=== PATIENT | male | born 1975 | race Hispanic/Latino ===

== ENCOUNTER 2021-11-14 18:08 | Emergency (ER) | payer OTHER ==
[2021-11-14] MEDS ORDERED: TETANUS & DIPHTHERIA TOX,ADULT 0.5 ML VIAL ONE (19:34)
--- NOTE | 2021-11-14 20:02 | RAD REPORT ---
EXAM DESCRIPTION: RAD - Finger-Thumb Right - 11/14/2021 7:56 pm CLINICAL HISTORY: laceration COMPARISON: No comparisons FINDINGS: No acute fracture. No malalignment. No significant focal degenerative changes. Laceration to the tip of the second finger. No radiopaque foreign body. IMPRESSION: No acute osseous abnormality involving the second finger.
[2021-11-14] MEDS ORDERED: BUPIVACAINE 0.5% PF 10 ML VIAL ONE (20:10)
[2021-11-14] MEDS ORDERED: LIDOCAINE 1% MPF 5 ML VIAL ONE (20:10)
[2021-11-14] MEDS ORDERED: LIDOCAINE 1% 20 ML MDV ONE (20:11)
--- NOTE | 2021-11-14 21:17 | EDPHYS ---
Physician Documentation [facility] Name: Nick Allen Age: 46 yrs Sex: Male : 1975 Arrival Date: 11/14/2021 Time: 18:11 Bed 8 Private MD: ED Physician Luis Olmstead HPI: 11/14 19:45 This 46 yrs old Male presents to ER via Ambulatory with complaints of Finger cp Injury, Laceration. 19:45 The patient or guardian reports a laceration, irregular. cp 19:45 The complaints affect the palmar aspect of distal phalanx of right index finger. cp 19:45 Context: while using electric saw. cp 19:45 Onset: The symptoms/episode began/occurred just prior to arrival. Associated signs and cp symptoms: Pertinent negatives: cyanosis distally, decreased sensation distally. Severity of symptoms: in the emergency department the symptoms are unchanged, despite home interventions. Historical: - Allergies: 18:45 No Known Allergies; vg1 - Home Meds: 18:45 None [Active]; vg1 - PMHx: 18:45 None; vg1 - Immunization history:: Client reports receiving the 2nd dose of the Covid vaccine, Last tetanus immunization: unknown. - Social history:: Smoking status: Patient denies any tobacco usage or history of. ROS: 19:55 Skin: Positive for laceration(s), of the jin side distal phalanx right index finger. cp 19:55 Constitutional: Negative for body aches, chills, fever, poor PO intake. cp 19:55 Cardiovascular: Negative for chest pain. 19:55 Respiratory: Negative for cough, shortness of breath, wheezing. 19:55 MS/extremity: Negative for decreased range of motion. 19:55 Neuro: Negative for numbness. 19:55 All other systems are negative. Exam: 20:00 Constitutional: The patient appears in no acute distress, alert, awake, comfortable, cp well developed, well nourished. 20:00 Head/Face: Normocephalic, atraumatic. cp 20:00 Chest/axilla: Inspection: normal. 20:00 Cardiovascular: Rate: normal. 20:00 Respiratory: the patient does not display signs of respiratory distress, Respirations: normal, no use of accessory muscles, labored breathing, is not present. 20:00 Abdomen/GI: Exam negative for discomfort, distension, guarding, Inspection: abdomen appears normal. 20:00 Musculoskeletal/extremity: Extremities: grossly normal except: noted in the palmar aspect of distal phalanx of right index finger: laceration, pain, There is no evidence of decreased ROM, ROM: full active range of motion, in the right index finger, Perfusion: the extremity is normally perfused throughout, the right index finger Sensation intact. Tendon exam: specific tendon testing normal through active and passive range of motion Vital Signs: 18:42 BP 136 / 98; Pulse 70; Resp 16; Temp 98.5; Pulse Ox 100% ; Weight 83.91 kg; vg1 19:26 Pulse 73; Resp 14; Pulse Ox 99% ; Pain 9/10; tw5 20:23 Pulse 71; Resp 14 S; Pulse Ox 100% ; tw5 21:34 Pulse 92; Resp 18; Pulse Ox 99% on R/A; Pain 0/10; tw5 Laceration: 21:15 Wound Repair of 3.5cm ( 1.4in ) subcutaneous laceration to jin side distal phalanx cp right index finger. Linear shaped.. Distal neuro/vascular/tendon intact. Anesthesia: Digital block administered with 10 mls of Lido/Marcaine. Wound prep: Moderate cleansing by me, Wound irrigation by me. Skin closed with 10 4-0 Prolene using interrupted sutures and sterile technique. Dressed with pressure dressing. Patient tolerated well. MDM: 19:38 Patient medically screened. cp 20:00 Differential diagnosis: open fracture, tendon injury, simple laceration. cp 21:16 Data reviewed: vital signs, nurses notes, radiologic studies, plain films. cp 21:16 Test interpretation: by ED physician or midlevel provider: plain radiologic studies. cp Counseling: I had a detailed discussion with the patient and/or guardian regarding: the historical points, exam findings, and any diagnostic results supporting the discharge/admit diagnosis, radiology results, to return to the emergency department if symptoms worsen or persist or if there are any questions or concerns that arise at home. Response to treatment: the patient's symptoms have markedly improved after treatment, and as a result, I will discharge patient. ED course: VSS. Wound closed as noted. Will discharge to home for continued monitoring. Patient instructed suture removal 10-14 days and to monitor for signs of infection such as drainage, redness. 11/14 19:44 Order name: XRAY Finger-Thumb RIGHT; Complete Time: 20:07 cp 11/14 20:07 Interpretation: Reviewed. cp 11/14 19:44 Order name: Dressing - Wound; Complete Time: 20:23 cp 11/14 19:44 Order name: Gloves, Sterile; Complete Time: 20:23 cp 11/14 19:44 Order name: Setup Suture Tray; Complete Time: 20:23 cp 11/14 21:15 Order name: Finger Splint; Complete Time: 21:23 cp 11/14 21:15 Order name: Dressing - Wound; Complete Time: 21:23 cp Administered Medications: 19:37 Drug: Tetanus-Diphtheria Toxoid Adult 0.5 ml {Wire Machine Cutter: restOpolis. Exp: tw5 04/12/2023. Lot #: [id number]. } Route: IM; Site: right deltoid; 20:23 Follow up: Response: No adverse reaction tw5 21:23 Drug: Marcaine (bupivacaine) (0.5 %) 10 ml {Note: Administered at the bedside by PA tw5 page.} Volume: 10 ml; Route: Infiltration; 21:24 Drug: Lidocaine (1 %) 10 ml {Note: Administered at the bedside by PA page .} Volume: 20 tw5 ml; Route: Infiltration; 21:31 Drug: KeFLEX (cephalexin) 500 mg Route: PO; tw5 21:34 Drug: Ibuprofen 800 mg Route: PO; tw5 21:36 Follow up: Response: No adverse reaction; Medication administered at discharge. tw5 21:36 Follow up: Response: No adverse reaction; Medication administered at discharge. tw5 Disposition: 21:30 Chart complete. cp Disposition Summary: 11/14/21 21:17 Discharge Ordered Location: Home cp Problem: new cp Symptoms: have improved cp Condition: Stable cp Diagnosis - Laceration without foreign body of right index finger without damage to nail cp Followup: cp - With: Private Physician - When: 10 - 14 days - Reason: Staple/Suture removal Discharge Instructions: - Discharge Summary Sheet cp - Laceration Care, Adult cp Forms: - Medication Reconciliation Form cp - Thank You Letter cp - Antibiotic Education cp - Prescription Opioid Use cp Prescriptions: - Cephalexin 500 mg Oral Capsule - take 1 capsule by ORAL route every 6 hours for 10 days; 40 capsule; Refills: 0, cp Product Selection Permitted - Naprosyn 500 mg Oral Tablet - take 1 tablet by ORAL route 2 times per day take with food; 20 tablet; Refills: cp 0, Product Selection Permitted Signatures: Bernard Hill PA PA cp Garcia, Victoria RN RN vg1 Annette Randall tw5
--- NOTE | 2021-11-14 21:17 | ER ---
Nurse's Notes [facility] Name: Nick Allen Age: 46 yrs Sex: Male : 1975 Arrival Date: 11/14/2021 Time: 18:11 Bed 8 Private MD: Diagnosis: Laceration without foreign body of right index finger without damage to nail Presentation: 11/14 18:42 Chief complaint: Patient states: cut Right index finger with an electric saw about 45 vg1 minutes ago; Bleeding is controlled. Coronavirus screen: Vaccine status: Patient reports receiving the 2nd dose of the covid vaccine. Client denies travel out of the [place] in the last 14 days. Ebola Screen: Patient negative for fever greater than or equal to 101.5 degrees Fahrenheit, and additional compatible Ebola Virus Disease symptoms. Initial Sepsis Screen: Does the patient meet any 2 criteria? No. Patient's initial sepsis screen is negative. Does the patient have a suspected source of infection? No. Patient's initial sepsis screen is negative. Risk Assessment: Do you want to hurt yourself or someone else? Patient reports no desire to harm self or others. Onset of symptoms was November 14, 2021. 18:42 Method Of Arrival: Ambulatory vg1 18:42 Acuity: SOURAV 3 vg1 Triage Assessment: 18:45 General: Appears in no apparent distress. uncomfortable, Behavior is calm, cooperative. vg1 Pain: Complains of pain in palmar aspect of distal phalanx of right index finger Pain currently is 6 out of 10 on a pain scale. Musculoskeletal:. Injury Description: Laceration sustained to palmar aspect of distal phalanx of right index finger and palmar aspect of middle phalanx of right index finger. Historical: - Allergies: 18:45 No Known Allergies; vg1 - Home Meds: 18:45 None [Active]; vg1 - PMHx: 18:45 None; vg1 - Immunization history:: Client reports receiving the 2nd dose of the Covid vaccine, Last tetanus immunization: unknown. - Social history:: Smoking status: Patient denies any tobacco usage or history of. Screenin:31 Abuse screen: Denies threats or abuse. Denies injuries from another. Nutritional tw5 screening: No deficits noted. Tuberculosis screening: No symptoms or risk factors identified. Fall Risk None identified. Assessment: 19:26 General: Reports Patient states he was using an electric saw at work when his finger tw5 got cut.". Pain: Complains of pain in palmar aspect of distal phalanx of right index finger and palmar aspect of middle phalanx of right index finger Pain currently is 9 out of 10 on a pain scale. Neuro: Level of Consciousness is awake, alert, obeys commands, Oriented to person, place, time, situation. Injury Description: Laceration sustained to palmar aspect of distal phalanx of right index finger and palmar aspect of middle phalanx of right index finger is contaminated, 2.6 to 7.5 cm long, not bleeding, was sustained 1-2 hours ago. a small amount of bleeding noted at this time. 20:23 Reassessment: Patient appears in no apparent distress at this time. No changes from tw5 previously documented assessment. Patient and/or family updated on plan of care and expected duration. Pain level reassessed. Patient is alert, oriented x 3, equal unlabored respirations, skin warm/dry/pink. 21:34 Reassessment: Patient states feeling better. Patient states symptoms have improved. tw5 Vital Signs: 18:42 BP 136 / 98; Pulse 70; Resp 16; Temp 98.5; Pulse Ox 100% ; Weight 83.91 kg; vg1 19:26 Pulse 73; Resp 14; Pulse Ox 99% ; Pain 9/10; tw5 20:23 Pulse 71; Resp 14 S; Pulse Ox 100% ; tw5 21:34 Pulse 92; Resp 18; Pulse Ox 99% on R/A; Pain 0/10; tw5 ED Course: 18:11 Patient arrived in ED. am2 18:45 Triage completed. vg1 18:45 Arm band placed on. vg1 19:09 Luis Olmstead MD is Attending Physician. sp3 19:12 Bernard Hamm PA is PHCP. cp 19:12 Luis Olmstead MD is Attending Physician. cp 19:12 Annette Randall is Primary Nurse. tw5 19:31 Patient has correct armband on for positive identification. sitting in chair. Pulse ox tw5 on. Door closed. Noise minimized. Moved to private room. 19:56 XRAY Finger-Thumb RIGHT In Process Unspecified. EDMS 20:23 Awaiting ED provider evaluation. tw5 21:34 Assist provider with laceration repair on right hand that was between 2.6 to 7.5 cm tw5 using sutures. Set up tray. Performed by Bernard SOARES Dressed with Kerlix, Patient tolerated well. Patient did not have IV access during this emergency room visit. Administered Medications: 19:37 Drug: Tetanus-Diphtheria Toxoid Adult 0.5 ml {Tactical/Mobile Watch Officer: [employer]. Exp: 04/12/2023. Lot #: [id number]. } Route: IM; Site: right deltoid; 20:23 Follow up: Response: No adverse reaction tw5 21:23 Drug: Marcaine (bupivacaine) (0.5 %) 10 ml {Note: Administered at the bedside by FANY hamm.} Volume: 10 ml; Route: Infiltration; 21:24 Drug: Lidocaine (1 %) 10 ml {Note: Administered at the bedside by FANY hamm .} Volume: 20 tw5 ml; Route: Infiltration; 21:31 Drug: KeFLEX (cephalexin) 500 mg Route: PO; tw5 21:34 Drug: Ibuprofen 800 mg Route: PO; tw5 21:36 Follow up: Response: No adverse reaction; Medication administered at discharge. tw5 21:36 Follow up: Response: No adverse reaction; Medication administered at discharge. tw5 Outcome: 21:17 Discharge ordered by . cp 21:35 Discharged to home ambulatory. tw5 21:35 Condition: improved 21:35 Discharge instructions given to patient, Instructed on discharge instructions, follow up and referral plans. medication usage, Demonstrated understanding of instructions, Prescriptions given X 2. 21:36 Patient left the ED. tw5 Signatures: Dispatcher [employer] EDMS Bernard Hamm PA PA cp Moreno, Amanda am2 Stephanie Causey, RN RN vg1 Luis Olmstead MD MD sp3 Annette Randall tw5 Corrections: (The following items were deleted from the chart) 19:18 19:15 No apparent distress. tw5 tw5 19:18 19:15 Patient has correct armband on for positive identification. Placed in gown. Bed tw5 in low position. Call light in reach. Side rails up X 1. tw5 19:18 19:15 Pulse ox on. NIBP on. tw5 tw5 19:18 19:15 Door closed. Noise minimized. Moved to private room. Warm blanket given. Verbal tw5 reassurance given. tw5 : 19:15 General: Appears in no apparent distress. Behavior is calm, cooperative, tw5 appropriate for age, tw5 19:15 Neuro: Level of Consciousness is awake, alert, obeys commands, Oriented to tw5 person, place, time, situation, tw5 19:15 Respiratory: Airway is patent Trachea midline Respiratory effort is even, tw5 unlabored, tw5 19:15 BP 106 / 60; Pulse 89bpm; Resp 18bpm; Pulse Ox 100% RA; tw5 tw5 :18 19:15 Abuse screen: Denies threats or abuse. Denies injuries from another. tw5 tw5 19:15 Nutritional screening: No deficits noted. tw5 tw5 19:15 Tuberculosis screening: No symptoms or risk factors identified. tw5 tw5 : 19:15 Fall Risk None identified. tw5 tw5 : 19:15 IV discontinued, intact, bleeding controlled, No redness/swelling at site. tw5 Pressure dressing applied, tw5 19:15 No provider procedures requiring assistance completed. tw5 tw5 : 19:15 Discharged to home ambulatory, tw5 tw5 : 19:15 Condition: stable tw5 tw5 19:15 Discharge instructions given to patient, Instructed on discharge instructions, tw5 follow up and referral plans. Demonstrated understanding of instructions, follow-up care, Prescriptions given X 3, tw5
[2021-11-14] MEDS ORDERED: CEPHALEXIN 250 MG CAP ONE (21:26)
[2021-11-14] MEDS ORDERED: IBUPROFEN 400 MG TAB ONE (21:27)
[2021-11-14 22:23] VITALS: BP 136/98; TEMP 98.5
[2021-11-14 22:27] VITALS: O2SAT 99
== END 2021-11-14 21:36 | disposition home or self-care (01) ==
LOC: ER 18:08
PROC: 0JQJ0ZZ Repair Right Hand Subcutaneous Tissue and Fascia, Open Approach (ICD-10-PCS; principal; 2021-11-14)
DX: S61.210A Laceration without foreign body of right index finger without damage to nail, initial encounter (principal); W27.0XXA Contact with workbench tool, initial encounter; Y92.009 Unspecified place in unspecified non-institutional (private) residence as the place of occurrence of the external cause; Z23 Encounter for immunization
CPT/HCPCS: 90471; 90714; 99284

== ENCOUNTER 2021-11-28 12:14 | Emergency (ER) | payer OTHER ==
--- NOTE | 2021-11-28 15:26 | ER ---
Nurse's Notes [facility] Name: Nick Allen Age: 46 yrs Sex: Male : 1975 Arrival Date: 11/28/2021 Time: 12:15 Bed Waiting Private MD: Diagnosis: Encounter for removal of sutures Presentation: 11/28 13:28 Chief complaint: Patient states: suture removal. Coronavirus screen: Vaccine status: morris Patient reports being unvaccinated. Ebola Screen: Patient denies travel to an Ebola-affected area in the 21 days before illness onset. Initial Sepsis Screen: Does the patient meet any 2 criteria? No. Patient's initial sepsis screen is negative. Does the patient have a suspected source of infection? No. Patient's initial sepsis screen is negative. Risk Assessment: Do you want to hurt yourself or someone else? Patient reports no desire to harm self or others. Onset of symptoms was November 14, 2021. 13:28 Method Of Arrival: Ambulatory 13:28 Acuity: SOURAV 5 morris Triage Assessment: 13:29 General: Appears in no apparent distress. Behavior is calm, cooperative. Pain: Denies morris pain. Historical: - Allergies: 13:29 No Known Allergies; morris - Home Meds: 13:29 None [Active]; morris - PMHx: 13:29 None; morris - PSHx: 13:29 None; morris - Immunization history:: Adult Immunizations up to date. - Social history:: Smoking status: Patient denies any tobacco usage or history of. Screenin:29 Abuse screen: Denies threats or abuse. Denies injuries from another. Nutritional morris screening: No deficits noted. Tuberculosis screening: No symptoms or risk factors identified. Fall Risk None identified. Assessment: 13:29 Injury Description: Laceration sustained to right hand 11 sutures removed. morris Vital Signs: 13:28 BP 127 / 94; Pulse 58; Resp 18; Temp 97.8(O); Pulse Ox 100% ; Weight 83.91 kg; Height 5 morris ft. 8 in. (172.72 cm); 13:28 Body Mass Index 28.13 (83.91 kg, 172.72 cm) ED Course: 12:15 Patient arrived in ED. am2 13:29 Triage completed. morris 13:29 Arm band placed on left wrist. morris 13:29 Patient has correct armband on for positive identification. morris 13:29 No provider procedures requiring assistance completed. morris 15:31 [facility] pm1 15:31 Bernard Metcalf MD is Attending Physician. pm1 15:34 Patient did not have IV access during this emergency room visit. vg1 Administered Medications: No medications were administered Outcome: 15:25 Discharge ordered by MD. pm1 15:33 Discharged to home ambulatory. vg1 15:33 Condition: stable 15:33 No charge visit due to suture removal. 15:34 Discharge ordered by . pm1 15:35 Patient left the ED. vg1 Signatures: Tong Goldman NP PICKLING TANK OPERATOR pm1 Kamala Lozano am2 Stephanie Causey, RN RN vg1 Kaitlyn Olmedo RN RN
--- NOTE | 2021-11-28 15:26 | EDPHYS ---
Physician Documentation [facility] Name: Nick Allen Age: 46 yrs Sex: Male : 1975 Arrival Date: 11/28/2021 Time: 12:15 Bed Waiting Private MD: Bernard Queen HPI: 11/28 15:29 This 46 yrs old Male presents to ER via Ambulatory with complaints of Suture pm1 Removal. 15:29 The patient has sutures on the palmar aspect of distal phalanx of right index finger. pm1 15:29 Previous treatment: The patient was initially treated on November 14, 2021, Treatment pm1 type: The patient's original treatment included sutures, Outpatient prescription(s): The patient was given prescription(s) for Keflex. Sutures/aurora progress: The patient has no c/o's. The wound is well-healing with no redness, swelling, discharge, or dehiscence reported. The patient has not experienced similar symptoms in the past. The patient has not recently seen a physician. Presenting to the ER for suture removal. Historical: - Allergies: 13:29 No Known Allergies; morris - Home Meds: 13:29 None [Active]; morris - PMHx: 13:29 None; morris - PSHx: 13:29 None; morris - Immunization history:: Adult Immunizations up to date. - Social history:: Smoking status: Patient denies any tobacco usage or history of. ROS: 15:29 Constitutional: Negative for fever, chills, and weight loss. pm1 15:29 Cardiovascular: Negative for chest pain, palpitations, and edema, Respiratory: Negative for shortness of breath, cough, wheezing, and pleuritic chest pain, MS/Extremity: Negative for injury and deformity. 15:29 Neuro: Negative for headache, weakness, numbness, tingling, and seizure. 15:29 Skin: Negative for cellulitis, erythema, swelling. 15:29 All other systems are negative. Exam: 15:29 Constitutional: This is a well developed, well nourished patient who is awake, alert, pm1 and in no acute distress. Head/Face: Normocephalic, atraumatic. 15:29 Cardiovascular: Exam negative for acute changes, Rate: normal, Rhythm: regular, Pulses: no pulse deficits are appreciated. 15:29 Respiratory: Exam negative for acute changes, respiratory distress, shortness of breath. 15:29 Skin: Wound recheck: Suture laceration closure: the wound is healing well, the edges are well approximated, no evidence of dehiscence, no drainage, no erythema, no swelling. 15:29 Neuro: Exam negative for acute changes, Orientation: is normal, Mentation: is normal, Motor: is normal, moves all fours, Gait: is steady, at a normal pace, without difficulty. Vital Signs: 13:28 BP 127 / 94; Pulse 58; Resp 18; Temp 97.8(O); Pulse Ox 100% ; Weight 83.91 kg; Height 5 morris ft. 8 in. (172.72 cm); 13:28 Body Mass Index 28.13 (83.91 kg, 172.72 cm) morris Procedures: 15:28 Suture/Staple removal: Removed 10 sutures, from palmar aspect of distal phalanx of pm1 right index finger, site appears well healed, Patient tolerated well. MDM: 15:24 Data reviewed: vital signs. Data interpreted: Pulse oximetry: on room air is 100 %. pm1 Interpretation: normal. Counseling: I had a detailed discussion with the patient and/or guardian regarding: the historical points, exam findings, and any diagnostic results supporting the discharge/admit diagnosis, the need for outpatient follow up, to return to the emergency department if symptoms worsen or persist or if there are any questions or concerns that arise at home. 15:25 Patient medically screened. pm1 Administered Medications: No medications were administered Disposition Summary: 11/28/21 15:34 Discharge Ordered Location: Home(11/28/21 15:34) pm1 Problem: new(11/28/21 15:34) pm1 Symptoms: have improved(11/28/21 15:34) pm1 Condition: Stable(11/28/21 15:34) pm1 Diagnosis - Encounter for removal of sutures(11/28/21 15:34) pm1 Followup: pm1 - With: Emergency Department - When: As needed - Reason: Worsening of condition Followup: pm1 - With: Private Physician - When: 2 - 3 days - Reason: Recheck today's complaints, Continuance of care, Re-evaluation by your physician Discharge Instructions: - Discharge Summary Sheet pm1 - Suture Removal, Care After pm1 Forms: - Medication Reconciliation Form pm1 - Thank You Letter pm1 - Antibiotic Education pm1 - Prescription Opioid Use pm1 Addendum: 11/30/2021 09:04 Co-signature as Attending Physician, Bernard Metcalf MD I agree with the assessment and c morris plan of care. Signatures: Bernard Metcalf MD MD cha Marinas, Patrick, EGG PROCESSOR EGG PROCESSOR pm1 Lilliam-Kaitlyn Salas RN RN morris Corrections: (The following items were deleted from the chart) 11/28 15:32 15:25 Home pm1 pm1 15:32 15:25 new pm1 pm1 15:32 15:25 have improved pm1 pm1 15:32 15:25 Stable pm1 pm1 15:32 15:25 Encounter for removal of sutures pm1 pm1
[2021-11-28 15:43] VITALS: BP 127/94; TEMP 97.8; O2SAT 100
== END 2021-11-28 15:35 | disposition home or self-care (01) ==
LOC: ER 12:14
DX: Z48.02 Encounter for removal of sutures (principal)

== ENCOUNTER 2022-10-14 09:18 | Emergency (ER) | payer SELFPAY ==
[2022-10-14] MEDS ORDERED: MORPHINE 4 MG/ML SYR ONE (09:51)
[2022-10-14] MEDS ORDERED: ONDANSETRON 4 MG/2 ML VIAL ONE (09:51)
[2022-10-14] MEDS ORDERED: TAMSULOSIN 0.4 MG SR CAP ONE (09:51)
[2022-10-14] MEDS ORDERED: MAGNESIUM SULFATE 1 gm IVPB 1 GM/100 ML BAG IV ONE (09:52)
[2022-10-14 09:55] LABS: Absolute Lymphocytes (CBC) 1.1 K/uL (0.7-4.9); MCV 84.1 fL (80-100); MPV 7.3 fL (7.6-11.3); RBC Red Blood Cell Count 5.59 M/uL (4.33-5.43)
[2022-10-14 10:11] LABS: Albumin 4.1 g/dL (3.4-5.0); Bilirubin Total 0.7 mg/dL (0.2-1.0); Protein, Total 7.5 g/dL (6.4-8.2)
--- NOTE | 2022-10-14 10:13 | RAD REPORT ---
EXAM DESCRIPTION: CT - Stone Protocol - 10/14/2022 9:52 am CLINICAL HISTORY: Flank pain. left flank pain COMPARISON: No comparisons TECHNIQUE: Axial images were obtained without oral or IV contrast. Lack of contrast limits solid org an and vascular assessment. The [id number] spans the entirety of the system partially obscuring uppermost abdomen and lung bases. Coronal reformatted images were obtained and reviewed. All CT scans are performed using dose optimization technique as appropriate and may include automated exposure control or mA/KV adjustment according to patient size. FINDINGS: The lower lung pitts are clear. Imaged portions of the liver and spleen show no suspicious findings on non-contrast imaging. The panc reas and adrenal glands are normal. No pathologic lymphadenopathy in the abdomen or pelvis. 5 mm stone left UVJ with mild left hydronephrosis. Punctate bilateral nephrolithiasis also present. No bowel obstruction, free air, free fluid or abscess. Normal appendix noted. No significant bony abnormality. IMPRESSION: 5 mm left UVJ stone with mild left hydronephrosis. Punctate bilateral nephrolithiasis without hydronephrosis.
[2022-10-14] MEDS ORDERED: KETOROLAC 30 MG/ML INJ ONE (10:33)
--- NOTE | 2022-10-14 11:53 | ER ---
Nurse's Notes [facility] Name: Nick Allen Age: 47 yrs Sex: Male : 1975 Arrival Date: 10/14/2022 Time: 09:21 Bed 10 Private MD: Diagnosis: Calculus of ureter Presentation: 10/14 09:45 Chief complaint: Patient states: left flank pain since 0400 today. Coronavirus screen: iw At this time, the client does not indicate any symptoms associated with coronavirus-19. Ebola Screen: Patient negative for fever greater than or equal to 101.5 degrees Fahrenheit, and additional compatible Ebola Virus Disease symptoms Patient denies exposure to infectious person. Patient denies travel to an Ebola-affected area in the 21 days before illness onset. No symptoms or risks identified at this time. Risk Assessment: Do you want to hurt yourself or someone else? Patient reports no desire to harm self or others. Onset of symptoms was October 14, 2022. 09:45 Method Of Arrival: Ambulatory iw 09:45 Acuity: SOURAV 3 iw 10:22 Initial Sepsis Screen: Does the patient meet any 2 criteria? No. Patient's initial iw sepsis screen is negative. Does the patient have a suspected source of infection? No. Patient's initial sepsis screen is negative. Historical: - Allergies: 10:17 No Known Allergies; iw - Immunization history:: Adult Immunizations unknown. - Family history:: not pertinent. - Social history:: Smoking status: unknown. - Hospitalizations: : No recent hospitalization is reported. Screenin:22 Abuse screen: Denies threats or abuse. Denies injuries from another. Nutritional iw screening: No deficits noted. Tuberculosis screening: No symptoms or risk factors identified. Fall Risk IV access (20 points). Assessment: 09:45 General: Appears uncomfortable, Behavior is cooperative. Pain: Complains of pain in iw abdomen and left low back. Neuro: Max Agitation-Sedation Scale (RASS): Level of Consciousness is awake, alert, obeys commands, Oriented to person, place, time, situation, Moves all extremities. Full function. Cardiovascular: Patient's skin is warm and dry. Respiratory: Respiratory effort is even, unlabored, Respiratory pattern is regular, symmetrical. GI: Reports. : Reports pain in left flank(s). Derm: Skin is intact, is healthy with good turgor. Musculoskeletal: Range of motion: intact in all extremities. 10:47 Reassessment: Patient appears in no apparent distress at this time. Patient and/or iw family updated on plan of care and expected duration. Pain level reassessed. Patient is alert, oriented x 3, equal unlabored respirations, skin warm/dry/pink. Patient states feeling better. Patient states symptoms have improved. Vital Signs: 10:16 BP 132 / 88; Pulse 76; Resp 16; Temp 98.0; Pulse Ox 100% on R/A; iw ED Course: 09:21 Patient arrived in ED. rg4 09:22 Tomas Hall MD is Attending Physician. rn 09:30 Initial lab(s) drawn, by me, sent to lab. Inserted saline lock: 20 gauge in left iw antecubital area, using aseptic technique. 09:44 Mandi Bey RN is Primary Nurse. iw 09:45 Triage completed. iw 09:45 Arm band placed on. iw 09:53 CT Stone Protocol In Process Unspecified. EDMS 10:23 Patient has correct armband on for positive identification. iw 10:48 No provider procedures requiring assistance completed. iw 11:52 Donell Hernandez MD is Referral Physician. rn 12:06 IV discontinued, intact, bleeding controlled, No redness/swelling at site. Pressure iw dressing applied. Administered Medications: 10:00 Drug: Zofran (Ondansetron) 4 mg Route: IVP; Site: left antecubital; iw 11:13 Follow up: Response: No adverse reaction ap3 10:00 Drug: morphine 4 mg Route: IVP; Infused Over: 4 mins; Site: left antecubital; iw 10:00 Drug: Magnesium Sulfate 1 grams Route: IVPB; Infused Over: 1 hrs; Site: left iw antecubital; 11:13 Follow up: Response: No adverse reaction; IV Status: Infusion continued ap3 10:15 Drug: Flomax (tamsulosin) 0.4 mg Route: PO; iw 10:47 Drug: Ketorolac 30 mg Route: IVP; Site: left antecubital; iw Medication: 12:06 VIS not applicable for this client. iw Outcome: 11:52 Discharge ordered by . rn 12:06 Discharged to home ambulatory. iw 12:06 Condition: good 12:06 Discharge instructions given to patient, Instructed on discharge instructions, follow up and referral plans. medication usage, Demonstrated understanding of instructions, follow-up care, medications, Prescriptions given X 4. 12:06 Patient left the ED. iw Signatures: Dispatcher [employer] EDMandi Gardner, RN Tomas Armenta MD MD rn Garcia, Rubi rg4 Kamala Coronel RN RN ap3
--- NOTE | 2022-10-14 11:53 | EDPHYS ---
Physician Documentation [facility] Name: Nick Allen Age: 47 yrs Sex: Male : 1975 Arrival Date: 10/14/2022 Time: 09:21 Bed 10 Private MD: ED Physician Tomas Hall HPI: 10/14 09:39 This 47 yrs old Male presents to ER via Unassigned with complaints of Back rn Pain, Abdominal Pain. 09:39 The patient presents with pain that is acute. The symptoms are located in the low back, rn left low back. Onset: The symptoms/episode began/occurred last night. The pain radiates to the abdomen. Associated signs and symptoms: Pertinent positives: abdominal pain, nausea, vomiting, Pertinent negatives: chest pain, fever, hematuria. Modifying factors: The patient symptoms are alleviated by nothing, the patient symptoms are aggravated by nothing. Severity of symptoms: At their worst the symptoms were moderate, in the emergency department the symptoms are unchanged. The patient has experienced a previous episode. The patient has not recently seen a physician. Pt reports left lower back pain, radiates to left groin/abdomen, assoc with nausea/vomiting, no fever. + hx of kidney stones, no previous intervention for stones. NO trauma. . Historical: - Allergies: 10:17 No Known Allergies; iw - Immunization history:: Adult Immunizations unknown. - Family history:: not pertinent. - Social history:: Smoking status: unknown. - Hospitalizations: : No recent hospitalization is reported. ROS: 09:39 Constitutional: Negative for fever, chills, and weight loss, Eyes: Negative for injury, rn pain, redness, and discharge, Neck: Negative for injury, pain, and swelling, Cardiovascular: Negative for chest pain, palpitations, and edema, Respiratory: Negative for shortness of breath, cough, wheezing, and pleuritic chest pain, Abdomen/GI: Negative for diarrhea, and constipation, Back: + left lower back pain : Negative for injury, bleeding, discharge, and swelling, MS/Extremity: Negative for injury and deformity, Skin: Negative for injury, rash, and discoloration, Neuro: Negative for headache, weakness, numbness, tingling, and seizure. Exam: 09:39 Constitutional: This is a well developed, well nourished patient who is awake, alert, rn appears uncomfortable but ambulates to room without assistance. Head/Face: Normocephalic, atraumatic. Cardiovascular: Regular rate and rhythm. No pulse deficits. Respiratory: No increased work of breathing, no retractions or nasal flaring. Abdomen/GI: Soft, non-tender Back: No spinal tenderness. No costovertebral tenderness. Full range of motion. Skin: Warm, dry MS/ Extremity: Pulses equal, no cyanosis. Neuro: Awake and alert, GCS 15, oriented to person, place, time, and situation. Motor strength 5/5 in all extremities. Sensory grossly intact. Cerebellar exam normal. Normal gait. Vital Signs: 10:16 BP 132 / 88; Pulse 76; Resp 16; Temp 98.0; Pulse Ox 100% on R/A; iw MDM: 09:22 Patient medically screened. rn 11:51 Differential diagnosis: Hydronephrosis Ureterolithiasis. rn 11:51 Data reviewed: vital signs, nurses notes, lab test result(s), radiologic studies, CT rn scan, and as a result, I will discharge patient. Counseling: I had a detailed discussion with the patient and/or guardian regarding: the historical points, exam findings, and any diagnostic results supporting the discharge/admit diagnosis, lab results, radiology results, the need for outpatient follow up, to return to the emergency department if symptoms worsen or persist or if there are any questions or concerns that arise at home. Response to treatment: the patient's symptoms have markedly improved after treatment, the patient's symptoms have resolved after treatment, the patient's condition has returned to base line, the patient is now symptom free, and as a result, I will discharge patient. Special discussion: I discussed with the patient/guardian in detail that at this point there is no indication for admission to the hospital. It is understood, however, that if the symptoms persist or worsen the patient needs to return immediately for re-evaluation. Based on the history and exam findings, there is no indication for further emergent testing or inpatient evaluation. I discussed with the patient/guardian the need to see the urologist for further evaluation of the symptoms. 10/14 09:38 Order name: CBC with Diff; Complete Time: : rn 10/14 09:38 Order name: CMP; Complete Time: rn 10/14 09:38 Order name: CT Stone Protocol; Complete Time: :22 rn 10/14 09:38 Order name: IV Saline Lock; Complete Time: :45 rn 10/14 09:38 Order name: Labs collected and sent; Complete Time: :45 rn Administered Medications: 10:00 Drug: Zofran (Ondansetron) 4 mg Route: IVP; Site: left antecubital; iw 11:13 Follow up: Response: No adverse reaction ap3 10:00 Drug: morphine 4 mg Route: IVP; Infused Over: 4 mins; Site: left antecubital; iw 10:00 Drug: Magnesium Sulfate 1 grams Route: IVPB; Infused Over: 1 hrs; Site: left iw antecubital; 11:13 Follow up: Response: No adverse reaction; IV Status: Infusion continued ap3 10:15 Drug: Flomax (tamsulosin) 0.4 mg Route: PO; iw 10:47 Drug: Ketorolac 30 mg Route: IVP; Site: left antecubital; iw Disposition Summary: 10/14/22 11:52 Discharge Ordered Location: Home rn Problem: new rn Symptoms: have improved rn Condition: Stable rn Diagnosis - Calculus of ureter rn Followup: rn - With: Donell Hernandez MD - When: As needed - Reason: Recheck today's complaints, Re-evaluation by your physician Discharge Instructions: - Discharge Summary Sheet rn - Kidney Stones rn - Renal Colic rn - Dietary Guidelines to Help Prevent Kidney Stones rn Forms: - Medication Reconciliation Form rn - Thank You Letter rn - Antibiotic furniture associate - Prescription Opioid Use rn Prescriptions: - Flomax 0.4 mg Oral capsule - take 1 capsule by ORAL route once daily As needed Stop taking once you feel rn that you have passed the kidney stone; 15 capsule; Refills: 0, Product Selection Permitted - ondansetron 4 mg Oral tablet,disintegrating - take 1 tablet by ORAL route every 8 hours As needed; 15 tablet; Refills: 0, rn Product Selection Permitted - Tylenol-Codeine #3 300 mg-30 mg Oral - take 1 tablet by ORAL route every 6-8 hours As needed; 15 tablet; Refills: 0, rn Product Selection Permitted - Cipro 500 mg Oral Tablet - take 1 tablet by ORAL route every 12 hours for 7 days; 14 tablet; Refills: 0, rn Product Selection Permitted Signatures: Dispatcher [employer] Mandi Veras RN RN Tomas Gunn MD MD rn Kamala Coronel RN ap3
[2022-10-14 12:24] VITALS: BP 132/88; TEMP 98; O2SAT 100
== END 2022-10-14 12:06 | disposition home or self-care (01) ==
LOC: ER 09:18
DX: N20.1 Calculus of ureter (principal)
CPT/HCPCS: 36415; 74176; 76377; 80053; 85025; 96365; 96375; 99284; J2405; J3475

== ENCOUNTER 2022-10-14 23:49 | Emergency (ER) | payer SELFPAY ==
[2022-10-15] MEDS ORDERED: KETOROLAC 30 MG/ML INJ ONE (00:26)
[2022-10-15] MEDS ORDERED: ONDANSETRON 4 MG/2 ML VIAL ONE (00:26)
[2022-10-15] MEDS ORDERED: MORPHINE 4 MG/ML SYR ONE (00:26)
[2022-10-15 01:04] LABS: Hematocrit 44.9 % (39.6-49.0); MCV 83.5 fL (80-100); MPV 7.5 fL (7.6-11.3); RBC Red Blood Cell Count 5.37 M/uL (4.33-5.43)
[2022-10-15 01:12] LABS: Albumin 3.9 g/dL (3.4-5.0); Bilirubin Total 0.7 mg/dL (0.2-1.0); Potassium 3.9 mmol/L (3.5-5.1); Protein, Total 7.3 g/dL (6.4-8.2)
[2022-10-15 02:00] LABS: Urine Blood 2+ (Negative); Urine Glucose Negative (Negative); Urine Protein Negative (Negative); Urine Specific Gravity 1.025 (1.005-1.030)
[2022-10-15 02:38] LABS: Specific Gravity 1.018 (1.005-1.030); Urine Bacteria <20 /HPF (<20); Urine Bilirubin NEGATIVE (Negative); Urine Blood 2+ (Negative); Urine Clarity Clear (Clear); Urine Color Light-Yellow (Yellow); Urine Glucose NEGATIVE (Negative); Urine Mucus Slight /HPF (None Seen); Urine Protein NEGATIVE (Negative); Urine RBC 21-50 /HPF (None Seen); Urine Sperm Present (None Seen); Urine Urobilinogen Normal (Normal)
--- NOTE | 2022-10-15 02:45 | EDPHYS ---
Physician Documentation [facility] Name: Nick Allen Age: 47 yrs Sex: Male : 1975 Arrival Date: 10/14/2022 Time: 23:53 Bed 20 Private MD: ED Physician Tigre Rees HPI: 10/15 00:41 This 47 yrs old Male presents to ER via Ambulatory with complaints of Possible rt Kidney Stone. 00:41 The patient complains of pain in the left mid back. The pain radiates to the abdomen. rt Onset: The symptoms/episode began/occurred this morning. Modifying factors: The symptoms are alleviated by nothing. the symptoms are aggravated by nothing. Associated signs and symptoms: The patient has no apparent associated signs or symptoms. Severity of pain: At its worst the pain was moderate. Patient was seen in the ED this morning where he was diagnosed with a left ureterolithiasis, subsequent discharged with medications after symptomatic improvement. He states that about 4 hours ago, his pain returned and was worse compared to this morning. He reports no other associated symptoms at this time. He tried to take his medications 3 hours ago only minimal relief. He denies other acute complaints at this time, symptoms are moderate in severity, no other aggravating or alleviating factors.. Historical: - Allergies: 00:11 No Known Allergies; ha1 - Immunization history:: Adult Immunizations up to date. - Social history:: Smoking status: Patient denies any tobacco usage or history of. - Family history:: not pertinent. ROS: 00:41 Constitutional: Negative for fever, chills, and weight loss, Eyes: Negative for injury, rt pain, redness, and discharge, ENT: Negative for injury, pain, and discharge, Cardiovascular: Negative for chest pain, palpitations, and edema. 00:41 Respiratory: Negative for shortness of breath, cough, wheezing, and pleuritic chest pain, MS/Extremity: Negative for injury and deformity, Skin: Negative for injury, rash, and discoloration, Neuro: Negative for headache, weakness, numbness, tingling, and seizure, Psych: Negative for depression, anxiety, suicide ideation, homicidal ideation, and hallucinations. 00:41 Abdomen/GI: Positive for abdominal pain, Negative for vomiting. 00:41 : Positive for flank pain, Negative for hematuria. Exam: 00:41 Constitutional: This is a well developed, well nourished patient who is awake, alert, rt and in no acute distress. Head/Face: Normocephalic, atraumatic. Eyes: Pupils equal round and reactive to light, extra-ocular motions intact. Lids and lashes normal. Conjunctiva and sclera are non-icteric and not injected. Cornea within normal limits. Periorbital areas with no swelling, redness, or edema. ENT: Nares patent. No nasal discharge, no septal abnormalities noted. Tympanic membranes are normal and external auditory canals are clear. Oropharynx with no redness, swelling, or masses, exudates, or evidence of obstruction, uvula midline. Mucous membranes moist. Neck: Trachea midline, no thyromegaly or masses palpated, and no cervical lymphadenopathy. Supple, full range of motion without nuchal rigidity, or vertebral point tenderness. No Meningismus. Chest/axilla: Normal chest wall appearance and motion. Nontender with no deformity. No lesions are appreciated. Cardiovascular: Regular rate and rhythm with a normal S1 and S2. No gallops, murmurs, or rubs. Normal PMI, no JVD. No pulse deficits. Respiratory: Lungs have equal breath sounds bilaterally, clear to auscultation and percussion. No rales, rhonchi or wheezes noted. No increased work of breathing, no retractions or nasal flaring. Skin: Warm, dry with normal turgor. Normal color with no rashes, no lesions, and no evidence of cellulitis. MS/ Extremity: Pulses equal, no cyanosis. Neurovascular intact. Full, normal range of motion. Neuro: Awake and alert, GCS 15, oriented to person, place, time, and situation. Cranial nerves II-XII grossly intact. Motor strength 5/5 in all extremities. Sensory grossly intact. Cerebellar exam normal. Normal gait. Psych: Awake, alert, with orientation to person, place and time. Behavior, mood, and affect are within normal limits. 00:41 Abdomen/GI: Left costovertebral angle tenderness, minimal suprapubic tenderness, no rebound, guarding, distention. Vital Signs: 00:03 BP 153 / 98; Pulse 88; Resp 18; Temp 98.5; Pulse Ox 100% on R/A; Weight 81.65 kg; em6 Height 5 ft. 8 in. (172.72 cm); Pain 10/10; 00:05 BP 153 / 98; Pulse 88; Resp 18 S; Pulse Ox 100% on R/A; ha1 00:35 BP 152 / 98; Pulse 88; Resp 16 S; Pulse Ox 100% on R/A; ha1 01:05 BP 112 / 74; Pulse 84; Resp 16 S; Pulse Ox 100% ; ha1 02:05 BP 111 / 78; Pulse 80; Resp 17 S; Pulse Ox 96% on R/A; ha1 03:05 BP 113 / 70; Pulse 80; Resp 15 S; Pulse Ox 98% on R/A; ha1 00:03 Body Mass Index 27.37 (81.65 kg, 172.72 cm) em6 MDM: 00:09 Patient medically screened. rt 02:47 Differential diagnosis: nephrolithiasis, pyelonephritis, UTI. Data reviewed: vital rt signs, nurses notes, old medical records, lab test result(s). ED course: Presents to the ED with recurrence of kidney stone pain. Vital signs are stable. Labs reveal mildly elevated creatinine, consistent with prior study. Patient has hematuria without evidence of infection. His pain has resolved with medications in the ED, stable for outpatient care, return precautions discussed.. 10/15 00:14 Order name: CMP; Complete Time: 01:25 rt 10/15 00:14 Order name: CBC w/o diff; Complete Time: 01:09 rt 10/15 02:00 Order name: Urine Dipstick-Ancillary; Complete Time: 02:13 EDMS 10/15 02:13 Order name: Urinalysis W/Microscopic; Complete Time: 02:38 EDMS Administered Medications: 00:36 Drug: Zofran (Ondansetron) 4 mg Route: IVP; Site: right antecubital; ha1 01:05 Follow up: Response: No adverse reaction ha1 00:38 Drug: morphine 4 mg Route: IVP; Infused Over: 4 mins; Site: right antecubital; ha1 01:05 Follow up: Response: No adverse reaction; Pain is decreased; RASS: Alert and Calm (0) ha1 00:40 Drug: Ketorolac 30 mg Route: IVP; Site: right antecubital; ha1 01:05 Follow up: Response: No adverse reaction ha1 Disposition Summary: 10/15/22 02:44 Discharge Ordered Location: Home rt Problem: an ongoing problem rt Symptoms: have improved rt Condition: Stable rt Diagnosis - Calculus of ureter rt Followup: rt - With: Private Physician - When: 2 - 3 days - Reason: Discharge Instructions: - Discharge Summary Sheet rt - Kidney Stones rt Forms: - Medication Reconciliation Form rt - Thank You Letter rt - Antibiotic Education rt - Prescription Opioid Use rt Signatures: Dispatcher [employer] EDEdilia Cherry RN RN ha1 Nighat Horne RN RN em6 Tigre Rees MD MD rt Corrections: (The following items were deleted from the chart) 02:11 00:15 URINALYSIS+U.LAB.BRZ ordered. EDMS EDMS 02:11 00:15 UA MICROSCOPIC+U.LAB.BRZ ordered. EDMS EDMS
--- NOTE | 2022-10-15 02:45 | ER ---
Nurse's Notes [facility] Name: Nick Allen Age: 47 yrs Sex: Male : 1975 Arrival Date: 10/14/2022 Time: 23:53 Bed 20 Private MD: Diagnosis: Calculus of ureter Presentation: 10/15 00:03 Chief complaint: Patient states: "I was here today and they told me I have 5 mm kidney em6 stones. I took my medication, but the pain wont go away. my left side is hurting so much". Coronavirus screen: Client denies travel out of the [place] in the last 14 days. Ebola Screen: Patient negative for fever greater than or equal to 101.5 degrees Fahrenheit, and additional compatible Ebola Virus Disease symptoms. Initial Sepsis Screen: Does the patient meet any 2 criteria? No. Patient's initial sepsis screen is negative. Does the patient have a suspected source of infection? No. Patient's initial sepsis screen is negative. Risk Assessment: Do you want to hurt yourself or someone else? Patient reports no desire to harm self or others. Onset of symptoms was October 13, 2022. 00:03 Method Of Arrival: Ambulatory em6 00:03 Acuity: SOURAV 3 em6 Triage Assessment: 00:05 General: Appears uncomfortable, Behavior is cooperative. Pain: Complains of pain in em6 anterior aspect of left lateral abdomen and posterior aspect of left lateral abdomen Pain radiates to anterior aspect of left lateral abdomen Pain currently is 10 out of 10 on a pain scale. Quality of pain is described as radiating, sharp, Pain began 2-3 days ago. Is continuous. EENT: No signs and/or symptoms were reported regarding the EENT system. Neuro: Level of Consciousness is awake, alert, obeys commands, Oriented to person, place, time, situation. Cardiovascular: Patient's skin is warm and dry. Respiratory: Airway is patent Respiratory effort is even, unlabored, Respiratory pattern is regular, symmetrical, Breath sounds are clear bilaterally. GI: Abdomen is non-distended, Bowel sounds present X 4 quads. Abd is soft and non tender X 4 quads. Reports lower abdominal pain, nausea, vomiting. : No signs and/or symptoms were reported regarding the genitourinary system. Derm: No signs and/or symptoms reported regarding the dermatologic system. Musculoskeletal: Circulation, motion, and sensation intact. Range of motion: intact in all extremities. Historical: - Allergies: 00:11 No Known Allergies; ha1 - Immunization history:: Adult Immunizations up to date. - Social history:: Smoking status: Patient denies any tobacco usage or history of. - Family history:: not pertinent. Screenin:05 Abuse screen: Denies threats or abuse. Nutritional screening: No deficits noted. em6 Tuberculosis screening: No symptoms or risk factors identified. 00:11 Fall Risk None identified. ha1 Assessment: 00:06 General: Appears uncomfortable, Behavior is cooperative. Pain: Complains of pain in ha1 posterior aspect of left lateral abdomen Pain does not radiate. Pain currently is 10 out of 10 on a pain scale. Quality of pain is described as throbbing. Neuro: Level of Consciousness is awake, alert, obeys commands, Oriented to person, place, time, situation. Cardiovascular: Capillary refill < 3 seconds Patient's skin is warm and dry. Respiratory: Airway is patent Trachea midline Respiratory effort is even, unlabored, Respiratory pattern is regular, symmetrical. GI: Abdomen is round non-distended, Bowel sounds present X 4 quads. Abd is soft and non tender Abd is non tender X 4 quads. : Reports having history of kidney stones. states " I have been taking my medication prescribed to help pass the kidney stone but tonight my pain got worse". 01:05 Reassessment: Patient and/or family updated on plan of care and expected duration. Pain ha1 level reassessed. Patient is alert, oriented x 3, equal unlabored respirations, skin warm/dry/pink. Patient denies pain at this time. Patient states feeling better. Patient states symptoms have improved. 02:05 Reassessment: Patient and/or family updated on plan of care and expected duration. Pain ha1 level reassessed. Patient is alert, oriented x 3, equal unlabored respirations, skin warm/dry/pink. Patient denies pain at this time. 03:05 Reassessment: Patient and/or family updated on plan of care and expected duration. Pain ha1 level reassessed. Patient is alert, oriented x 3, equal unlabored respirations, skin warm/dry/pink. Patient denies pain at this time. Patient states feeling better. Patient states symptoms have improved. Vital Signs: 00:03 BP 153 / 98; Pulse 88; Resp 18; Temp 98.5; Pulse Ox 100% on R/A; Weight 81.65 kg; em6 Height 5 ft. 8 in. (172.72 cm); Pain 10/10; 00:05 BP 153 / 98; Pulse 88; Resp 18 S; Pulse Ox 100% on R/A; ha1 00:35 BP 152 / 98; Pulse 88; Resp 16 S; Pulse Ox 100% on R/A; ha1 01:05 BP 112 / 74; Pulse 84; Resp 16 S; Pulse Ox 100% ; ha1 02:05 BP 111 / 78; Pulse 80; Resp 17 S; Pulse Ox 96% on R/A; ha1 03:05 BP 113 / 70; Pulse 80; Resp 15 S; Pulse Ox 98% on R/A; ha1 00:03 Body Mass Index 27.37 (81.65 kg, 172.72 cm) em6 ED Course: 10/14 23:53 Patient arrived in ED. ja2 10/15 00:02 Tigre Rees MD is Attending Physician. rt 00:05 Triage completed. em6 00:06 Edilia Corona RN is Primary Nurse. ha1 00:07 Arm band placed on. em6 00:07 Bed in low position. Call light in reach. Side rails up X2. Pulse ox on. NIBP on. Warm em6 blanket given. 00:35 Inserted saline lock: 20 gauge in right antecubital area, using aseptic technique. ha1 Blood collected. 00:43 CBC w/o diff Sent. ha1 00:43 CMP Sent. ha1 03:18 No provider procedures requiring assistance completed. IV discontinued, intact, ha1 bleeding controlled, No redness/swelling at site. Pressure dressing applied. Administered Medications: 00:36 Drug: Zofran (Ondansetron) 4 mg Route: IVP; Site: right antecubital; ha1 01:05 Follow up: Response: No adverse reaction ha1 00:38 Drug: morphine 4 mg Route: IVP; Infused Over: 4 mins; Site: right antecubital; ha1 01:05 Follow up: Response: No adverse reaction; Pain is decreased; RASS: Alert and Calm (0) ha1 00:40 Drug: Ketorolac 30 mg Route: IVP; Site: right antecubital; ha1 01:05 Follow up: Response: No adverse reaction ha1 Medication: 03:19 VIS not applicable for this client. ha1 Outcome: 02:44 Discharge ordered by . rt 03:17 Patient left the ED. ha1 03:19 Discharged to home ambulatory. ha1 03:19 Condition: stable 03:19 Discharge instructions given to patient, Instructed on discharge instructions, follow up and referral plans. Demonstrated understanding of instructions, follow-up care. Signatures: Saranya Kim2 Edilia Corona RN RN ha1 Nighat Horne RN RN em6 Tigre Rees MD MD rt Corrections: (The following items were deleted from the chart) 00:08 00:05 GI: Abdomen is non-distended, Abd is soft and non tender X 4 quads. Reports lower em6 abdominal pain, nausea, vomiting, em6 02:12 01:55 BP 112 / 74; Pulse 84bpm; Resp 16bpm; Spontaneous; Pulse Ox 100%; ha1 ha1 02:16 02:00 BP 111 / 78; Pulse 80bpm; Resp 17bpm; Spontaneous; Pulse Ox 96% RA; ha1 ha1
[2022-10-15 03:26] VITALS: TEMP 98.5
[2022-10-15 03:44] VITALS: BP 111/78; O2SAT 96
== END 2022-10-15 03:17 | disposition home or self-care (01) ==
LOC: ER 23:49
DX: N20.1 Calculus of ureter (principal)
CPT/HCPCS: 36415; 80053; 81001; 81003; 85027; 96374; 96375; 99284; J2405